=== PATIENT | female | born 1995 | race Caucasian/White ===

== ENCOUNTER 2018-04-03 21:54 | Emergency (ER) | payer MEDICAID, OTHER ==
[~2018-04-03] VITALS: Ht 160 cm; Wt 77.1 kg
--- NOTE | 2018-04-03 23:01 | NUR ---
pt ambulatory w/ steady gait, here for c/o headaches w/ dizziness & lt nare epistaxis x 3 days. AOx4, afebrile, denies any blurred visions, no active nose bleeding at this time w/ resp even & unlabored, no sob noted. Awaiting fozia carrington MD.
[2018-04-03 23:14] VITALS: BP 118/73
--- NOTE | 2018-04-03 23:14 | NUR ---
Patient discharged to home in stable condition. Written and verbal after care instructions given. Patient verbalizes understanding of instruction.
== END 2018-04-03 23:15 | disposition home or self-care (01) ==
LOC: ER 21:54
DX: R04.0 Epistaxis (principal)
CPT/HCPCS: A4606; Z7610